=== PATIENT | female | born 1990 | race Caucasian/White ===

== ENCOUNTER → 2016-06-16 | Outpatient (REF) | payer OTHER ==
[2016-06-16 21:17] LABS: FREE T4 0.97 NG/DL (0.76-1.46)
== END ==
LOC: M SFHCLERA 15:09
PROVIDERS: ATTEND Family Medicine
DX: E04.1 Nontoxic single thyroid nodule (principal)

== ENCOUNTER → 2016-06-23 | Outpatient (CLI) | payer OTHER ==
--- NOTE | 2016-06-24 03:36 | REP ---
Clinical: Follow-up thyroid nodule. Comparison: 05/27/2015. Technique: Real time castellano scale and color evaluation of the thyroid gland using linear high frequency transducer. Findings: The thyroid gland and right-sided nodule are essentially unchanged. Right lobe measures 5.8 x 1.9 x 1.2 cm with 12 mm hypoechoic nodule similar to prior examination. Previously noted 4 mm cyst not visualized. Left lobe measures 5.3 x 1.7 x 1.3 cm without cyst or nodule. Impression: Essentially stable thyroid gland with 12 mm hypoechoic nodule in the right lobe again noted. Signed by Alvin Le MD 06/24/2016 03:28 A
== END ==
LOC: M RAD 09:35
PROVIDERS: ATTEND Family Medicine
DX: E04.1 Nontoxic single thyroid nodule (principal)

== ENCOUNTER → 2017-06-21 | Outpatient (REF) | payer OTHER ==
[2017-06-21 16:39] LABS: HEMATOCRIT 38.7 % (36.0-47.0); HEMOGLOBIN 12.7 g/dl (12.0-15.5); MEAN CORPUSCULAR HEMOGLOBIN 28.9 pg (27.0-33.0); MEAN CORPUSCULAR HGB CONC 32.8 g/dl (32.0-36.5); MEAN CORPUSCULAR VOLUME 88.2 fl (80.0-96.0); PLATELET COUNT, AUTOMATED 429 10^3/uL (150-450); RED BLOOD COUNT 4.39 10^6/uL (4.00-5.40); RED CELL DISTRIBUTION WIDTH 13.2 % (11.5-14.5); WHITE BLOOD COUNT 6.1 10^3/uL (4.0-10.0)
== END ==
LOC: M SFHCLERA 11:31
DX: E03.9 Hypothyroidism, unspecified (principal)

== ENCOUNTER → 2017-09-01 | Outpatient (REF) | payer OTHER | LOC: M SFHCLERA 08:11 | DX: E03.9 Hypothyroidism, unspecified (principal) ==

== ENCOUNTER → 2017-12-21 | Outpatient (REF) | payer OTHER ==
[2017-12-21 12:29] LABS: THYROID STIMULATING HORMONE 0.515 uIU/ML (0.358-3.740)
== END ==
LOC: M SFHCLERA 09:23
DX: E03.9 Hypothyroidism, unspecified (principal); Z23 Encounter for immunization
CPT/HCPCS: 84443

== ENCOUNTER → 2018-01-10 | Outpatient (CLI) | payer OTHER | LOC: M SLEEP HO 10:41 | DX: R06.83 Snoring (principal); R06.00 Dyspnea, unspecified; E66.01 Morbid (severe) obesity due to excess calories; Z68.38 Body mass index [BMI] 38.0-38.9, adult | CPT/HCPCS: G0399 ==

== ENCOUNTER → 2018-08-14 | Outpatient (REF) | payer OTHER ==
[2018-08-14 17:01] LABS: BASO % 0.3 % (0.0-1.0); EOS % 0.6 % (0.0-3.0); HEMATOCRIT 39.8 % (36.0-47.0); HEMOGLOBIN 13.3 g/dl (12.0-15.5); LYMPH # 1.8 10^3/uL (1.5-6.5); LYMPH % 28.6 % (24.0-44.0); MEAN CORPUSCULAR HEMOGLOBIN 31.2 pg (27.0-33.0); MEAN CORPUSCULAR HGB CONC 33.4 g/dl (32.0-36.5); MEAN CORPUSCULAR VOLUME 93.4 fl (80.0-96.0); MONO # 0.4 10^3/uL (0.0-0.8); NEUTROPHILS # 3.9 10^3/uL (1.8-7.7); NEUTROPHILS % 63.2 % (36.0-66.0); PLATELET COUNT, AUTOMATED 425 10^3/uL (150-450); RED BLOOD COUNT 4.26 10^6/uL (4.00-5.40); WHITE BLOOD COUNT 6.3 10^3/uL (4.0-10.0)
== END ==
LOC: M SFHCLERA 11:31
PROVIDERS: ATTEND Family Medicine
DX: Z12.4 Encounter for screening for malignant neoplasm of cervix (principal)